=== PATIENT | male | born 1970 | race Caucasian/White ===

== ENCOUNTER 2016-04-04 08:00 | Emergency (ER) | payer OTHER ==
[~2016-04-04] VITALS: Wt 100.0 kg
[~2016-04-04 08:00] MED LIST: IBUP-1542 PO; SODI44SP11 NASAL
[2016-04-04] MEDS ORDERED: HYDROCODONE/APAP (10/325) TAB PO ONE (09:00)
[2016-04-04 09:03] LABS: URINE BLOOD (Dip) POC Negative (NEGATIVE)
--- NOTE | 2016-04-04 09:16 | ERD ---
ER Documentation Chief Complaint Date/Time DATE: 04/04/16 TIME: 09:11 Chief Complaint headache since last night. non traumatic. no neuro deficit. mild dizziness HPI This is a 45-year-old male who presents to the emergency department today complaining of headache for the past 7 days. Patient also stated that he had chest pain that started last night that lasted approximate 4 hours. He states he has some numbness and tingling in his left arm and fingers. States he takes blood pressure medications however he is unsure of the names. States he's been taking ibuprofen last night for the headache with some improvement in pain. States his headache is intermittent. States he has also had some dizziness. Denies any drug abuse, vomiting, vision changes. Denies any cough or shortness of breath ROS All systems reviewed and are negative except as per history of present illness. Medications Home Meds Active Scripts Naproxen* (Naprosyn*) 500 Mg Tablet, 500 MG PO BID Y for PAIN AND/OR INFLAMMATION, #30 TAB Prov:PREMA KERN PA-C 04/04/16 Hydrocodone/Acetaminophen (Eden 10-325 Tablet) 1 Each Tablet, 1 TAB PO Q6H Y for PAIN, #15 TAB Prov:PREMA KERN PA-C 04/04/16 Sodium Chloride (Saline Nasal [place]) 45 Ml [place], 2 SPRAYS NASAL Q2H Y for NASAL CONGESTION, #1 BOTTLE Prov:SABINO CARRINGTON. [employer] 04/21/15 Ibuprofen* (Motrin*) 600 Mg Tab, 600 MG PO Q6H Y for PAIN AND OR ELEVATED TEMP, #30 TAB Prov:SABINO CARRINGTON. [employer] 04/21/15 Allergies Allergies: Coded Allergies: No Known Allergy (Unverified , 03/03/14) PMhx/Soc History of Surgery: No Anesthesia Reaction: No Hx Neurological Disorder: No Hx Respiratory Disorders: No Hx Cardiac Disorders: Yes (HTN) Hx Psychiatric Problems: No Hx Miscellaneous Medical Probl: No Hx Alcohol Use: Yes (OCCASIONAL) Hx Substance Use: No Hx Tobacco Use: No Physical Exam Vitals Vital Signs Date Time Temp Pulse Resp B/P Pulse Ox O2 Delivery O2 Flow Rate FiO2 04/04/16 08:03 98.8 79 20 108/72 98 Physical Exam Const: No acute distress Head: Atraumatic Eyes: Normal Conjunctiva. PERRLA. EOM intact. ENT: Normal External Ears, Nose and Mouth. Neck: Full range of motion..~ No meningismus. Resp: Clear to auscultation bilaterally. No absent breath sounds. No wheezing. Mild tenderness substernal with trunk rotation to the right Cardio: Regular rate and rhythm, no murmurs Abd: Soft, non tender, non distended. Normal bowel sounds Skin: No petechiae or rashes Back: No midline or flank tenderness Ext: No cyanosis, or edema Neur: Awake and alert. Cranial nerves II through XII intact. No gait ataxia. Psych: Normal Mood and Affect Result Diagram: 04/04/16 0855 04/04/16 0855 Results 24 hrs Laboratory Tests Test 04/04/16 08:55 04/04/16 09:05 Alanine Aminotransferase (ALT/SGPT) 90IU/L Albumin 4.6g/dl Albumin/Globulin Ratio 1.31 Alkaline Phosphatase 75IU/L Anion Gap 17 Aspartate Amino Transf (AST/SGOT) 57IU/L Basophils # 0.010^3/ul Basophils % 0.5% Blood Morphology Comment Blood Urea Nitrogen 11mg/dl Calcium Level 9.3mg/dl Carbon Dioxide Level 30mmol/L Chloride Level 101mmol/L Creatinine 0.59mg/dl Direct Bilirubin 0.00mg/dl Eosinophils # 0.210^3/ul Eosinophils % 2.7% Globulin 3.50g/dl Glucose Level 125mg/dl Hematocrit 48.0% Hemoglobin 16.9g/dl Indirect Bilirubin 0.7mg/dl Lymphocytes # 1.910^3/ul Lymphocytes % 25.1% Mean Corpuscular Hemoglobin 32.3pg Mean Corpuscular Hemoglobin Concent 35.1g/dl Mean Corpuscular Volume 92.0fl Mean Platelet Volume 11.9fl Monocytes # 0.710^3/ul Monocytes % 8.7% Neutrophils # 4.810^3/ul Neutrophils % 63.0% Nucleated Red Blood Cells # 0.010^3/ul Nucleated Red Blood Cells % 0.0/100WBC Platelet Count 30759^3/UL Potassium Level 4.2mmol/L Red Blood Count 5.2210^6/ul Red Cell Distribution Width 12.8% Sodium Level 144mmol/L Total Bilirubin 0.7mg/dl Total Protein 8.1g/dl Troponin I < 0.012ng/ml White Blood Count 7.610^3/ul Bedside Urine Blood Negative Bedside Urine Glucose (UA) Negative Bedside Urine Ketones (LAB) Trace Bedside Urine Leukocyte Esterase (L Negative Bedside Urine Nitrite (LAB) Negative Bedside Urine Protein (LAB) 1+ Bedside Urine pH (LAB) 7.0 Current Medications Medications (Trade) Dose Ordered Sig/Rom Route PRN Reason Start Time Stop Time Status Last Admin Dose Admin Acetaminophen/ Hydrocodone Bitart (Eden ()) 1 tab ONCE ONCE PO 04/04/16 09:00 04/04/16 09:01 04/04/16 09:00 Patient: EMILY DUEÑAS : 1970 Age: 45 Sex: M MR #: [id number] DOS: 04/04/16 0000 Ordering MD: PREMA KERN PA-C Location: [facility] Room/Bed: PROCEDURE: XR Chest. CLINICAL INDICATION: Chest pain TECHNIQUE: A single portable view of the chest was obtained. COMPARISON: 04/19/2014 FINDINGS: The cardiomediastinal silhouette is within normal limits. The left hemidiaphragm is elevated with probable left lower lobe atelectasis. The remaining lungs and pleural spaces are clear. The soft tissues and osseous structures are unremarkable. IMPRESSION: No acute cardiopulmonary disease. Elevated left hemidiaphragm with probable left lower lobe atelectasis. RPTAT: HPNM Physician Colt Date Time Electronically viewed and signed by Physician Colt on 04/04/2016 09 :25 / CC: PREMA KERN PA-C Procedures/MDM This is a 45-year-old male who presents to the emergency department today for headache for the past 7 days and chest pain that started last night and lasted for approximate 4 hours. Patient is on 2 hypertensive meds. The patient's chest pain complaint and did obtain laboratory work as well as imaging and an EKG. Laboratory work shows an elevated white blood cell count. He is not anemic. Platelets are within normal limits. Electrolytes are within normal limits. Glucose is within normal limits. Liver functions elevated. Troponin is negative UA is negative for infection Chest x-ray shows elevated left hemidiaphragm with probable left lower lobe atelectasis. Remaining lungs and pleural spaces are clear. EKG read and interpreted by Dr. Welch rate [address] elevation and no QT prolongation. Normal sinus rhythm. Low suspicion for PE, pericarditis, acute [place]. Patient's headache appears to be episodic in nature and does improve with pain medication. Patient has no focal neurologic deficits and no gait ataxia and I do not feel the patient requires a head CT scan at this time. I have low suspicion for abscess, acute hemorrhage, mass, meningitis, migraine. Patient was given Eden here in the emergency department and headache improved. Patient's symptoms at this time most consistent with episodic headache and chest pain, likely noncardiac patient did have some chest pain with trunk rotation to the right he may also have costochondritis as well. suspicion for anemia or infection as cause of patient's headache or dizziness. Patient was instructed to follow-up with his primary care physician regarding his laboratory work. I will give the patient a prescription for Eden and Naprosyn for home. At this time the patient is stable for discharge and outpatient management. Patient should follow up with their PCP in the next 1-2 days. They may return to the emergency department sooner for any persistent or worsening of symptoms. Patient understood and agreed with the plan. I discussed the patient with Dr. Welch and he is in agreement with the plan. Departure Diagnosis: Primary Impression: Headache Headache type: unspecified Headache chronicity pattern: episodic headache Intractability: not intractable Qualified Code: R51 - Nonintractable episodic headache, unspecified headache type Additional Impression: Chest pain Chest pain type: unspecified Qualified Code: R07.9 - Chest pain, unspecified type PREMA KERN PA-C Apr 04, 2016 09:16
[2016-04-04 09:20] LABS: ALBUMIN 4.6 g/dl (3.3-4.9); CHLORIDE 101 mmol/L (97-110)
[2016-04-04 09:21] LABS: POTASSIUM 4.2 mmol/L (3.5-5.1); SODIUM 144 mmol/L (135-144)
[2016-04-04 09:23] LABS: ALBUMIN/GLOBULIN RATIO 1.31; ALKALINE PHOSPHATASE 75 IU/L (42-121); ANION GAP 17 (8-16); ASPARTATE AMINO TRANSFERASE 57 IU/L (15-46); BILIRUBIN,INDIRECT 0.7 mg/dl (0-1.1); BILIRUBIN,TOTAL 0.7 mg/dl (0.2-1.3); CARBON DIOXIDE 30 mmol/L (21-31); CREATININE 0.59 mg/dl (0.61-1.24); GLUCOSE 125 mg/dl (70-220); TOTAL PROTEIN 8.1 g/dl (6.1-8.1)
[2016-04-04 09:24] LABS: ALANINE AMINOTRANSFERASE 90 IU/L (13-69); CALCIUM 9.3 mg/dl (8.4-10.2)
--- NOTE | 2016-04-04 09:25 | RADRPT ---
PROCEDURE: XR Chest. CLINICAL INDICATION: Chest pain TECHNIQUE: A single portable view of the chest was obtained. COMPARISON: 04/19/2014 FINDINGS: The cardiomediastinal silhouette is within normal limits. The left hemidiaphragm is elevated with pr obable left lower lobe atelectasis. The remaining lungs and pleural spaces are clear. The soft tiss ues and osseous structures are unremarkable. IMPRESSION: No acute cardiopulmonary disease. Elevated left hemidiaphragm with probable left lower lobe atelectasis. RPTAT: HPNM Physician Colt Date Time Electronically viewed and signed by Physician Colt on 04/04/2016 09:25 /
[2016-04-04 09:37] LABS: TROPONIN-I < 0.012 ng/ml (0.00-0.12)
[2016-04-04 09:38] LABS: BLOOD UREA NITROGEN 11 mg/dl (7-20)
[2016-04-04 09:40] LABS: BASOPHILS % 0.5 % (0.0-2.0); EOSINOPHILS # 0.2 10^3/ul (0.0-0.5); EOSINOPHILS % 2.7 % (0.0-7.0); HEMOGLOBIN 16.9 g/dl (14.0-18.0); LYMPHOCYTES # 1.9 10^3/ul (0.8-2.9); LYMPHOCYTES % 25.1 % (15.0-51.0); MEAN CORPUSCULAR HEMOGLOBIN 32.3 pg (29.0-33.0); MEAN CORPUSCULAR HGB CONC 35.1 g/dl (32.0-37.0); MEAN PLATELET VOLUME 11.9 fl (7.4-10.4); MONOCYTE # 0.7 10^3/ul (0.3-0.9); MONOCYTES % 8.7 % (0.0-11.0); NEUTROPHIL # 4.8 10^3/ul (1.6-7.5); PLATELET COUNT 196 10^3/UL (140-440); RED BLOOD COUNT 5.22 10^6/ul (4.70-6.10); RED CELL DISTRIBUTION WIDTH 12.8 % (11.5-14.5); UNCORRECTED WBC 7.6 10^3/ul (4.8-10.8); WHITE BLOOD COUNT 7.6 10^3/ul (4.8-10.8)
[2016-04-04 09:50] LABS: CONDITION 1
[2016-04-04] MEDS ORDERED: HYDR-902 PO (10:20)
[2016-04-04] MEDS ORDERED: NAPR-260 PO (10:20)
== END 2016-04-04 10:26 | disposition home or self-care (01) ==
LOC: FTE 08:00
DX: R51 Headache (principal); I10 Essential (primary) hypertension; R07.9 Chest pain, unspecified
CPT/HCPCS: 71010; 80053; 81003; 84484; 85025; Z7610; 36415; 93005